=== PATIENT | female | born 1985 | race Caucasian/White ===

== ENCOUNTER 2016-09-16 06:25 | Emergency (ER) | payer OTHER ==
[2016-09-16] MEDS ORDERED: Sodium Chloride 0.9% 1,000 ML ONE (06:35)
[2016-09-16 06:38] VITALS: RESP 20
[2016-09-16 06:46] LABS: BASO % 0.2 % (0.0-2.0); HEMATOCRIT 39.7 % (34.0-47.0); LYMPH # 1.2 K/uL (1.0-4.3); LYMPH % 7.1 % (20.0-40.0); MEAN CELL VOLUME 90.2 fL (81.0-99.0); MEAN CORPUSCULAR HEMOGLOBIN 30.4 pg (27.0-31.0); MEAN CORPUSCULAR HGB CONC 33.7 g/dL (33.0-37.0); MONO # 0.4 K/uL (0.0-0.8); MONO % 2.7 % (0.0-10.0); PLATELET COUNT 370 K/uL (130-400); RED CELL DISTRIBUTION WIDTH 13.5 % (11.5-14.5); WHITE BLOOD COUNT 16.7 K/uL (4.8-10.8)
[2016-09-16 06:56] LABS: CHLORIDE 102 mmol/L (98-107); POTASSIUM 3.5 mmol/L (3.6-5.2); SODIUM 141 mmol/L (132-148)
[2016-09-16 06:58] LABS: AST/SGOT 19 U/L (14-36); BILIRUBIN,TOTAL 0.6 mg/dL (0.2-1.3); CARBON DIOXIDE 23 mmol/L (22-30); GFR AFRICAN-AMERICAN > 60
[2016-09-16 06:59] LABS: ALB/GLOB RATIO 1.5 (1.0-2.1); ALKALINE PHOSPHATASE 64 U/L (38-126); ALT/SGPT 13 U/L (9-52); BLOOD UREA NITROGEN 16 mg/dL (7-17); CALCIUM 9.5 mg/dl (8.6-10.4); GLUCOSE,RANDOM 119 mg/dL (65-105); TOTAL PROTEIN 8.1 g/dL (6.3-8.3)
[2016-09-16] MEDS ORDERED: Sodium Chloride 0.9% 1,000 ML IV ONE (07:19)
--- NOTE | 2016-09-16 07:51 | C.PDOC ---
History Of Present Illness 31-year-old female, presents to the emergency department with complaints of abdominal pain, that started last night. Pain is persistent in nature, and associated with nausea, non-bloody/non-bilious vomiting and watery/non-bloody diarrhea, resulting in her coming to the ED for evaluation. Patient denies vaginal bleeding/discharge, symptoms, fevers or chills. Time Seen by Provider: 09/16/16 07:16 Chief Complaint (Nursing): Abdominal Pain History Per: Patient History/Exam Limitations: no limitations Onset/Duration Of Symptoms: Days Current Symptoms Are (Timing): Still Present Past Medical History Reviewed: Historical Data, Nursing Documentation, Vital Signs Vital Signs: Last Vital Signs Temp 98.2 F 09/16/16 10:23 Pulse 72 09/16/16 10:23 Resp 20 09/16/16 10:23 BP 108/63 09/16/16 10:23 Pulse Ox 100 09/16/16 10:23 Family History: States: No Known Family Hx - Social History Hx Alcohol Use: Yes Hx Substance Use: No Review Of Systems Except As Marked, All Systems Reviewed And Found Negative. Constitutional: Negative for: Fever, Chills Cardiovascular: Negative for: Chest Pain Gastrointestinal: Positive for: Nausea, Vomiting, Abdominal Pain, Diarrhea Genitourinary: Negative for: Vaginal Discharge, Vaginal Bleeding Musculoskeletal: Negative for: Back Pain Physical Exam - Physical Exam Appears: Non-toxic, No Acute Distress Skin: Warm, Dry, No Rash Head: Atraumatic Eye(s): bilateral: Normal Inspection Nose: Normal Oral Mucosa: Moist Lips: Normal Appearing Neck: Normal ROM Chest: Symmetrical Respiratory: No Accessory Muscle Use Gastrointestinal/Abdominal: Soft, Tenderness (Suprapubic), No Guarding, No Rebound Extremity: Normal ROM Neurological/Psych: Oriented x3 ED Course And Treatment - Laboratory Results Result Diagrams: 09/16/16 06:43 09/16/16 06:43 O2 Sat by Pulse Oximetry: 97 Medical Decision Making Medical Decision Making: abd pain r/o colitis, uti- labs imaging pending 1035: pt reassessed: abd soft no ttp, pt playing with children in nad. non specific leukocytosis. no e/o of appendicitis, colitis. pt advised to f/u outpt Disposition - Disposition Referrals: [facility] [Outside] [facility] [Outside] Yoni Koenig MD [Staff Provider] - Stephen Jefferson MD [Staff Provider] - Disposition: HOME/ ROUTINE Disposition Time: 10:12 Condition: STABLE Additional Instructions: please follow up with your doctor. return to er with worsening ysmptoms or concerns. you should discuss your blood results with your doctor and obgyn Instructions: Ovarian Cyst (ED), Acute Abdominal Pain (ED) - Clinical Impression Clinical Impression: Abdominal pain, Leukocytosis - Scribe Statement The provider has reviewed the documentation as recorded by the Rick Cadena All medical record entries made by the Rovertoiblorena were at my direction and personally dictated by me. I have reviewed the chart and agree that the record accurately reflects my personal performance of the history, physical exam, medical decision making, and the department course for this patient. I have also personally directed, reviewed, and agree with the discharge instructions and disposition.
[2016-09-16 08:05] LABS: RBC URINE 2 /hpf (0-3); URINE BILIRUBIN NEGATIVE (NEGATIVE); URINE BLOOD NEGATIVE (NEGATIVE); URINE COLOR Yellow (YELLOW); URINE GLUCOSE (UA) NORMAL (Normal); URINE KETONE 1+ mg/dL (NEGATIVE); URINE LEUKOCYTE ESTERASE NEG Leu/uL (Negative); URINE PROTEIN 2+ mg/dL (NEGATIVE); URINE UROBILINOGEN NORMAL mg/dL (0.2-1.0); WBC URINE 3 /hpf (0-5)
[2016-09-16 09:23] LABS: NEUTROPHIL 87 % (50-75); TOTAL CELLS COUNTED 100
[2016-09-16] MEDS ORDERED: Iodixanol 320 MG/ML 100 ML BOTTLE IV ONE (09:27)
--- NOTE | 2016-09-16 10:03 | CT ---
PROCEDURE: CT Abdomen and Pelvis with contrast HISTORY: lower abd pain COMPARISON: None. TECHNIQUE: Contrast dose: 100 cc of Visipaque Radiation dose: Total exam DLP = 277 mGy-cm. This CT exam was performed using one or more of the following dose reduction techniques: Automated exposure control, adjustment of the mA and/or kV according to patient size, and/or use of iterative reconstruction technique. FINDINGS: LOWER THORAX: Unremarkable. LIVER: There is a 3.3 x 4 cm hypodense lesion in the liver with an enhancing nodule. Findings are consistent with hemangioma. This is seen adjacent to the confluence of the hepatic veins. Image 17 series 2 GALLBLADDER AND BILE DUCTS: Unremarkable. PANCREAS: Unremarkable. No gross lesion or ductal dilatation. SPLEEN: Unremarkable. ADRENALS: Unremarkable. No mass. KIDNEYS AND URETERS: Unremarkable. No hydronephrosis. No solid mass. VASCULATURE: Unremarkable. No aortic aneurysm. BOWEL: Unremarkable. No obstruction. No gross mural thickening. APPENDIX: Normal appendix. PERITONEUM: Unremarkable. No free fluid. No free air. LYMPH NODES: Unremarkable. No enlarged lymph nodes. BLADDER: Unremarkable. REPRODUCTIVE: There is a collapsed thick-walled ovarian cyst on the right which is seen best on image 60 of coronal series 601 BONES: No acute fracture. OTHER FINDINGS: None. IMPRESSION: Recently ruptured right ovarian cyst. No evidence of appendicitis
[2016-09-16 10:24] VITALS: BP 108/63; PULSE 72; TEMP 98.2
[2016-09-16 10:36] VITALS: O2SAT 97
== END 2016-09-16 10:23 | disposition home or self-care (01) ==
LOC: C.ER 06:25
DX: R10.9 Unspecified abdominal pain (principal); D72.829 Elevated white blood cell count, unspecified
CPT/HCPCS: 74177; 80053; 81001; 84703; 85025; 96361; 96374; 96375; 99284; J1885; J2405; J2765; J7040; Q9967

== ENCOUNTER 2016-11-01 04:11 | Emergency (ER) | payer SELFPAY ==
[2016-11-01 04:46] VITALS: BMI 24.4
[2016-11-01 04:47] VITALS: TEMP 97.5
[2016-11-01] MEDS ORDERED: Sodium Chloride 0.9% 1,000 ML IV ONE ×2 (04:47→05:34)
--- NOTE | 2016-11-01 04:50 | C.PDOC ---
History Of Present Illness Patient is a 31 y/o female that presents to the ED for evaluation of upper abdominal pain that started tonight. Patient is noted to put her finger in her mouth several times. Otherwise, denies any diarrhea, urinary symptoms, back pain , fever, chills, or any other complaints at this time. History Per: Patient History/Exam Limitations: no limitations Onset/Duration Of Symptoms: Hrs Current Symptoms Are (Timing): Still Present Location Of Pain/Discomfort: Epigastric Radiation Of Pain To:: None Quality Of Discomfort: "Pain" Associated Symptoms: Nausea, Vomiting. denies: Fever, Chills, Diarrhea, Loss Of Appetite, Back Pain, Chest Pain, Constipation, Urinary Symptoms Exacerbating Factors: None Alleviating Factors: None Recent travel outside of the [place]: No Additional History Per: Patient Abnormal Vaginal Bleeding: No Past Medical History Reviewed: Historical Data, Nursing Documentation, Vital Signs Vital Signs: Last Vital Signs Temp 97.5 F L 11/01/16 05:11 Pulse 86 11/01/16 05:11 Resp 16 11/01/16 05:11 BP 113/74 11/01/16 05:11 Pulse Ox 100 11/01/16 05:11 Family History: States: Unknown Family Hx - Social History Hx Alcohol Use: Yes Hx Substance Use: No Review Of Systems Except As Marked, All Systems Reviewed And Found Negative. Constitutional: Negative for: Fever, Chills Gastrointestinal: Positive for: Nausea, Vomiting, Abdominal Pain. Negative for : Diarrhea, Constipation Genitourinary: Negative for: Dysuria, Frequency, Incontinence, Hematuria Musculoskeletal: Negative for: Back Pain Physical Exam - Physical Exam Appears: Non-toxic, No Acute Distress, Other (Pt has finger in her mouth) Skin: Normal Color, Warm, Dry Head: Atraumatic, Normacephalic Eye(s): bilateral: Normal Inspection, EOMI Neck: Normal ROM, Supple Chest: Symmetrical Cardiovascular: Rhythm Regular, No Murmur Respiratory: Normal Breath Sounds, No Rales, No Rhonchi, No Wheezing Gastrointestinal/Abdominal: Soft, Tenderness (epigastric), No Distention, No Guarding, No Rebound Extremity: Bilateral: Atraumatic, Normal ROM Neurological/Psych: Oriented x3, Normal Speech, Normal Cognition ED Course And Treatment - Laboratory Results Result Diagrams: 11/01/16 05:03 11/01/16 05:03 Progress Note: Blood work, urinalysis ordered and reviewed. Patient was treated with Zofran, Ativan, and IV fluids. NG tube was inserted but patient removed it. Disposition - Disposition Disposition Time: 07:00 Condition: STABLE - Clinical Impression Clinical Impression: Vomiting, Abdominal pain - Scribe Statement The provider has reviewed the documentation as recorded by the Rovertoibe Sara Beaver All medical record entries made by the Rovertoiblorena were at my direction and personally dictated by me. I have reviewed the chart and agree that the record accurately reflects my personal performance of the history, physical exam, medical decision making, and the department course for this patient. I have also personally directed, reviewed, and agree with the discharge instructions and disposition.
[2016-11-01 05:05] LABS: BASO # 0.1 K/uL (0.0-0.2); BASO % 0.3 % (0.0-2.0); EOS # 0.1 K/uL (0.0-0.7); EOS % 0.5 % (0.0-4.0); HEMOGLOBIN 11.9 g/dL (11.0-16.0); LYMPH # 3.3 K/uL (1.0-4.3); LYMPH % 15.8 % (20.0-40.0); MEAN CELL VOLUME 90.6 fL (81.0-99.0); MEAN CORPUSCULAR HEMOGLOBIN 29.4 pg (27.0-31.0); MEAN CORPUSCULAR HGB CONC 32.5 g/dL (33.0-37.0); MEAN PLATELET VOLUME 8.9 fL (7.2-11.7); MONO # 0.6 K/uL (0.0-0.8); MONO % 2.7 % (0.0-10.0); NEUT # 16.8 K/uL (1.8-7.0); NEUT % 80.7 % (50.0-75.0); NRBC % 0.1 % (0.0-2.0); RBC 4.04 Mil/uL (3.80-5.20); RED CELL DISTRIBUTION WIDTH 13.8 % (11.5-14.5); WHITE BLOOD COUNT 20.9 K/uL (4.8-10.8)
[2016-11-01 05:19] LABS: ALBUMIN 4.5 g/dL (3.5-5.0)
[2016-11-01 05:22] LABS: ALB/GLOB RATIO 1.5 (1.0-2.1); AST/SGOT 41 U/L (14-36); BLOOD UREA NITROGEN 17 mg/dL (7-17); GFR AFRICAN-AMERICAN > 60; GFR NON-AFRICAN AMERICAN > 60
[2016-11-01 05:23] LABS: ALT/SGPT 34 U/L (9-52); CALCIUM 8.9 mg/dl (8.6-10.4); LIPASE 54 U/L (23-300)
[2016-11-01] MEDS ORDERED: Iohexol 240 (50 ml) PO ONE (05:33)
[2016-11-01] MEDS ORDERED: Iodixanol 320 MG/ML 100 ML BOTTLE IV ONE (07:37)
--- NOTE | 2016-11-01 07:50 | RAD ---
PROCEDURE: CHEST RADIOGRAPH, 1 VIEW HISTORY: vomiting/ leucocytosis COMPARISON: None available. FINDINGS: LUNGS: Clear. PLEURA: No pneumothorax or pleural fluid seen. CARDIOVASCULAR: Normal. OSSEOUS STRUCTURES: No significant abnormalities. VISUALIZED UPPER ABDOMEN: Normal. OTHER FINDINGS: None. IMPRESSION: No active disease.
--- NOTE | 2016-11-01 08:34 | CT ---
PROCEDURE: CT Abdomen and Pelvis with contrast HISTORY: upper abd pain/vomiting. Negative HCG COMPARISON: 09/16/2016 TECHNIQUE: Contrast dose: 100 mL visipaque. Omnipaque 240 Radiation dose: Total exam DLP = 355 mGy-cm. This CT exam was performed using one or more of the following dose reduction techniques: Automated exposure control, adjustment of the mA and/or kV according to patient size, and/or use of iterative reconstruction technique. FINDINGS: LOWER THORAX: Unremarkable. LIVER: The previously referenced 3 to 4 cm right hepatic lobe hypodense mass at and just below the confluence of the hepatic veins and right lateral to the IVC is similar in appearance the hyperdensity-previously referenced in hand seen nodule may represent greater pooling contrast in a hemangioma. No precontrast or delayed imaging is available. No ductal dilatation. . Diffuse fatty infiltration of the liver likely. There is hyperdensity projecting of the left hepatic lobe (axial series 3, image 52 this is more conspicuous than on the prior exam some of this is likely artifact. This appearance is not tethered appreciated as such on the recent 09/08/2016 study. GALLBLADDER AND BILE DUCTS: Unremarkable. PANCREAS: Unremarkable. No gross lesion or ductal dilatation. SPLEEN: Unremarkable. ADRENALS: Unremarkable. No mass. KIDNEYS AND URETERS: Unremarkable. No hydronephrosis. No solid mass. VASCULATURE: Unremarkable. No aortic aneurysm. BOWEL: Unremarkable. No obstruction. No gross mural thickening. APPENDIX: Normal appendix. PERITONEUM: Unremarkable. No free fluid. No free air. LYMPH NODES: Unremarkable. No enlarged lymph nodes. BLADDER: Slightly dilated. Otherwise unremarkable REPRODUCTIVE: Bilateral ovarian follicular appearing cysts are inferred. . BONES: No acute fracture. OTHER FINDINGS: None. IMPRESSION: No bowel obstruction or free air. No colitis or gross suspect small-bowel air-fluid levels to suggest gross enteritis. Liver findings probably relating to a tresa angioma incidentally detected in this 31-year-old female. Left hepatic lobe appearance possibly artifactual given the unremarkable recent CT here. Consider MR of the liver for characterisation.
[2016-11-01 08:53] LABS: HCG,QUALITATIVE URINE NEGATIVE (NEGATIVE)
[2016-11-01 09:00] LABS: SQUAMOUS EPITHIAL 11 /hpf (0-5); URINE BILIRUBIN NEGATIVE (NEGATIVE); URINE BLOOD 1+ (NEGATIVE); URINE CLARITY Hazy (Clear); URINE COLOR Yellow (YELLOW); URINE GLUCOSE (UA) NORMAL (Normal); URINE LEUKOCYTE ESTERASE TRACE Leu/uL (Negative); URINE NITRATE NEGATIVE (NEGATIVE); URINE PROTEIN NEGATIVE (NEGATIVE); URINE UROBILINOGEN NORMAL mg/dL (0.2-1.0)
[2016-11-01 09:24] VITALS: BP 99/60; PULSE 96; RESP 18; O2SAT 98
== END 2016-11-01 09:43 | disposition home or self-care (01) ==
LOC: C.ER 04:11
DX: R10.13 Epigastric pain (principal); R11.2 Nausea with vomiting, unspecified
CPT/HCPCS: 36415; 71010; 74177; 80053; 81001; 83690; 84702; 84703; 85025; 87040; 87086; 96374; 96375; 99285; J2060; J2405; J3480; J7040; Q9966; Q9967